=== PATIENT | female | born 1970 | race Caucasian/White ===

== ENCOUNTER 2021-12-08 19:11 | Inpatient (IN) ==
[2021-12-08 20:25] LABS: ABS Neutrophils 0.1 10^3/ul (1.5-7.7); Hematocrit 27 % (35-47); Hemoglobin 9.2 g/dL (12.0-16.0); Mean Corpuscular HGB Conc 34 g/dL (31-36); Mean Corpuscular Hemoglobin 34 pg (27-31); Mean Corpuscular Volume 98 fL (80-97); Mean Platelet Volume 8.6 fL (7.4-10.4); Platelet Count 19 10^3/uL (150-450); Red Blood Count 2.73 10^6 /uL (3.70-4.87); Red Cell Distribution Width 17 % (10-15); White Blood Count 0.6 10^3/uL (3.5-10.8)
[2021-12-08 20:33] LABS: Albumin 3.1 g/dL (3.2-5.2); Albumin/Globulin Ratio 1.5 (1-3); Calcium 7.9 mg/dL (8.6-10.3); Globulin 2.1 g/dL (2-4); Potassium 3.1 mmol/L (3.5-5.0); Total Bilirubin 0.4 mg/dL (0.2-1.0); Total Protein 5.2 g/dL (6.4-8.9); eGFR CKD-EPI 36.7 (>60)
[2021-12-08 20:58] LABS: ABS Lymphocytes 0.4 10^3/ul (1.0-4.8); ABS Monocytes 0.2 10^3/ul (0-0.8); Eosinophil % 0.5 %; Lymphocyte % 63.1 %
[2021-12-08 21:36] LABS: High Sensitivity Troponin 1 Hr 19 pg/mL (<15)
[2021-12-08] MEDS ORDERED: Iodixanol (CONTRAST) 320 MG/ML 100 ML SDV IV ONE (22:20)
[2021-12-08] MEDS ORDERED: Vancomycin 2,000 MG in NS 0.9% 250 ml 250 ML IVPB ONE (23:57)
[2021-12-09 00:39] LABS: C Reactive Protein 12.51 mg/L (<8.01)
[2021-12-09 00:46] LABS: Urine Appearance Slightly Cloudy; Urine Blood Negative (Negative); Urine Color Yellow; Urine Glucose Negative (Negative); Urine Ketones 1+ (15mg/dL) (Negative); Urine Nitrite Negative (Negative); Urine Protein 1+ (30 mg/dL) (Negative); Urine Specific Gravity 1.015 (1.005-1.030); Urine Urobilinogen 0.2 (Negative) (Negative); Urine pH 5.5 (5.0-9.0)
[2021-12-09 00:53] LABS: Urine Bacteria 1+ (Absent); Urine Red Blood Cell 3+(>10/hpf) (Absent); Urine Squamous Epithelial Cell Present (Absent); Urine White Blood Cell 1+(6-10/hpf) (Absent)
[2021-12-09] MEDS ORDERED: Vancomycin 2,000 MG in NS 0.9% 500 ml BAG 500 ML IVPB ONE (01:00)
[2021-12-09] MEDS ORDERED: Cefepime ADVAN 1 GM in NS 0.9% 50 ML 50 ML IVPB SCH (02:00)
[2021-12-09] MEDS ORDERED: Vancomycin per Pharmacy 1 EA NOTE FOLLOW UP SCH (02:00)
[2021-12-09 02:27] LABS: Magnesium 1.2 mg/dL (1.9-2.7)
[2021-12-09] MEDS ORDERED: NS 0.9% 1000 ml BAG 1,000 ML IV ONE (02:53)
[2021-12-09] MEDS ORDERED: Magnesium Sulfate IV 3 GM in NS 0.9% 100 ml BAG 100 ML IVPB ONE (02:53)
[2021-12-09] MEDS ORDERED: Magnesium Sulfate 2 GM IV (Premix) IVPB ONE (04:00)
[2021-12-09] MEDS ORDERED: Cefepime 1 GM IV - ED ONCE IV ONE (04:00)
[2021-12-09] MEDS: KCL 20 MEQ/100 ML IVPREMIX 20 MEQ/100 ML BAG IV SCH ×3 (04:05→08:42)
[2021-12-09] MEDS: Al Hydrox/Mg Hydrox/Simet LIQ 30 ML UDC PO PRN ×3 (04:22→20:31)
[2021-12-09] MEDS ORDERED: Magnesium Sulfate 1 GM IV 1 GM/100 ML BAG IV ONE (05:00)
[2021-12-09] MEDS: NS 0.9% 1000 ml BAG 1,000 ML IV SCH ×2 (08:42→20:06)
[2021-12-09] MEDS: Albuterol HFA INHALER 8 gm MDI INH SCH ×2 (08:48→12:01)
[2021-12-09] MEDS: Mometasone/Formoter 200/5 MDI INH SCH ×3 (08:49→19:40)
[2021-12-09 09:07] LABS: Calcium 7.5 mg/dL (8.6-10.3); Potassium 3.7 mmol/L (3.5-5.0)
[2021-12-09 09:13] LABS: eGFR CKD-EPI 54.1 (>60)
[2021-12-09 09:26] LABS: ABS Lymphocytes 0.3 10^3/ul (1.0-4.8); ABS Monocytes 0.2 10^3/ul (0-0.8); ABS Neutrophils 0.1 10^3/ul (1.5-7.7); Eosinophil % 0.7 %; Hematocrit 25 % (35-47); Hemoglobin 8.3 g/dL (12.0-16.0); Lymphocyte % 51.6 %; Mean Corpuscular HGB Conc 34 g/dL (31-36); Mean Corpuscular Hemoglobin 34 pg (27-31); Mean Corpuscular Volume 99 fL (80-97); Mean Platelet Volume 8.5 fL (7.4-10.4); Nucleated Red Blood Cells % 0.1; Platelet Count 20 10^3/uL (150-450); Red Blood Count 2.48 10^6 /uL (3.70-4.87); Red Cell Distribution Width 17 % (10-15); White Blood Count 0.6 10^3/uL (3.5-10.8)
[2021-12-09] MEDS ORDERED: Nicotine GUM 2MG FRUIT FLAVOR PO PRN (13:04)
[2021-12-09] MEDS: Cefepime 1 GM in Dextrose 1 GM/50 ML BAG IV SCH (16:16)
[2021-12-09] MEDS: Albuterol HFA INHALER 8 gm MDI INH PRN ×2 (16:46→19:41)
[2021-12-09] MEDS: NICOTINE GUM 2 MG PO PRN (16:52)
[2021-12-09] MEDS ORDERED: Calcium Carb (TUMS) 500 mg CHEW TAB PO PRN (21:17)
[2021-12-10] MEDS ORDERED: Ondansetron 4 mg VIAL 2 MG/ML 2 ml VIAL IV ONE (01:20)
[2021-12-10] MEDS: Albuterol HFA INHALER 8 gm MDI INH PRN ×5 (01:21→19:35)
[2021-12-10] MEDS: Cefepime 1 GM in Dextrose 1 GM/50 ML BAG IV SCH ×2 (04:03→15:23)
[2021-12-10] MEDS ORDERED: Vancomycin Random Level NOTE FOLLOW UP ONE (05:30)
[2021-12-10 06:02] LABS: Hematocrit 24 % (35-47); Hemoglobin 8.1 g/dL (12.0-16.0); Mean Corpuscular HGB Conc 34 g/dL (31-36); Mean Corpuscular Hemoglobin 34 pg (27-31); Mean Corpuscular Volume 99 fL (80-97); Mean Platelet Volume 9.2 fL (7.4-10.4); Platelet Count 33 10^3/uL (150-450); Red Cell Distribution Width 17 % (10-15); White Blood Count 0.7 10^3/uL (3.5-10.8)
[2021-12-10 06:40] LABS: Calcium 7.6 mg/dL (8.6-10.3); Potassium 4.1 mmol/L (3.5-5.0); Vancomycin Random 12.6 mcg/mL; eGFR CKD-EPI 76.4 (>60)
[2021-12-10] MEDS: Mometasone/Formoter 200/5 MDI INH SCH ×2 (07:18→19:29)
[2021-12-10 09:39] LABS: Anisocytosis 1+
[2021-12-10 09:40] LABS: ABS Lymphocytes 0.3 10^3/ul (1.0-4.8); ABS Monocytes 0.4 10^3/ul (0-0.8); ABS Neutrophils 0.1 10^3/ul (1.5-7.7); Eosinophil % 0.6 %; Lymphocyte % 41.7 %; Nucleated Red Blood Cells % 0.7
[2021-12-10] MEDS ORDERED: Vancomycin 1,250 MG in NS 0.9% 250 ml 250 ML IVPB SCH (13:30)
[2021-12-10] MEDS: Al Hydrox/Mg Hydrox/Simet LIQ 30 ML UDC PO PRN ×3 (14:34→19:33)
[2021-12-10] MEDS ORDERED: Ondansetron 4 mg VIAL 2 MG/ML 2 ml VIAL IV PRN (15:05)
[2021-12-11] MEDS: Albuterol HFA INHALER 8 gm MDI INH PRN ×3 (02:17→20:32)
[2021-12-11] MEDS: Cefepime 1 GM in Dextrose 1 GM/50 ML BAG IV SCH ×2 (04:42→17:47)
[2021-12-11 05:51] LABS: Hematocrit 23 % (35-47); Hemoglobin 7.4 g/dL (12.0-16.0); Mean Corpuscular HGB Conc 32 g/dL (31-36); Mean Corpuscular Hemoglobin 31 pg (27-31); Mean Corpuscular Volume 97 fL (80-97); Platelet Count 43 10^3/uL (150-450); Red Blood Count 2.36 10^6 /uL (3.70-4.87); Red Cell Distribution Width 17 % (10-15)
[2021-12-11 06:41] LABS: Anisocytosis 1+; Polychromasia 1+
[2021-12-11 06:42] LABS: ABS Lymphocytes 0.3 10^3/ul (1.0-4.8); ABS Monocytes 0.6 10^3/ul (0-0.8); ABS Neutrophils 0.1 10^3/ul (1.5-7.7); Eosinophil % 0.5 %; Nucleated Red Blood Cells % 3.4
[2021-12-11] MEDS: Mometasone/Formoter 200/5 MDI INH SCH ×2 (07:33→20:32)
[2021-12-11] MEDS: NICOTINE GUM 2 MG PO PRN (09:04)
[2021-12-11] MEDS: Fluticasone NASAL SPRAY 50MCG 16 gm SPRAY BTL INTRANASAL SCH (12:40)
[2021-12-11] MEDS: Al Hydrox/Mg Hydrox/Simet LIQ 30 ML UDC PO PRN ×2 (14:35→20:05)
[2021-12-11] MEDS ORDERED: Gadoteridol (CONTRAST) 279.3 MG/ML 10 ML IV ONE (17:02)
[2021-12-12] MEDS ORDERED: Vancomycin Trough Check NOTE FOLLOW UP ONE ×2 (00:30→11:30)
[2021-12-12] MEDS: Albuterol HFA INHALER 8 gm MDI INH PRN ×2 (02:00→07:09)
[2021-12-12] MEDS: Cefepime 1 GM in Dextrose 1 GM/50 ML BAG IV SCH (03:27)
[2021-12-12] MEDS: Albuterol 2.5mg/3 ml (0.083%) NEB.SOLN INH SCH ×3 (03:59→07:08)
[2021-12-12] MEDS: Mometasone/Formoter 200/5 MDI INH SCH (07:09)
[2021-12-12 07:22] LABS: Hematocrit 23 % (35-47); Mean Corpuscular HGB Conc 35 g/dL (31-36); Mean Corpuscular Hemoglobin 34 pg (27-31); Mean Corpuscular Volume 98 fL (80-97); Mean Platelet Volume 9.1 fL (7.4-10.4); Platelet Count 65 10^3/uL (150-450); Red Blood Count 2.35 10^6 /uL (3.70-4.87); Red Cell Distribution Width 17 % (10-15); White Blood Count 1.3 10^3/uL (3.5-10.8)
[2021-12-12 07:24] LABS: Potassium 3.9 mmol/L (3.5-5.0); eGFR CKD-EPI 79.6 (>60)
[2021-12-12 08:23] LABS: RBC Morphology Normal (Normal)
[2021-12-12 08:27] LABS: ABS Lymphocytes 0.3 10^3/ul (1.0-4.8); ABS Monocytes 0.7 10^3/ul (0-0.8); ABS Neutrophils 0.3 10^3/ul (1.5-7.7); Eosinophil % 0.2 %; Lymphocyte % 25.4 %; Nucleated Red Blood Cells % 1.1
[2021-12-12] MEDS: Fluticasone NASAL SPRAY 50MCG 16 gm SPRAY BTL INTRANASAL SCH (09:05)
[2021-12-12 11:52] VITALS: BP 102/65
== END 2021-12-12 15:20 | disposition home or self-care (01) | DRG 720 ==
LOC: ED 19:11 → EDHOLD 19:11 → SUATTDRO 12-09 01:36 → EDHOLD 12-09 08:08 → MED 12-09 08:24 → SUATTDRO 12-09 14:05
PROVIDERS: ADMIT Internal Medicine; ATTEND Internal Medicine

== ENCOUNTER 2021-12-15 18:49 | Observation (INO) ==
[2021-12-15 19:39] LABS: INR 1.03 (0.89-1.11)
[2021-12-15 19:45] LABS: Albumin 2.9 g/dL (3.2-5.2); Calcium 8.3 mg/dL (8.6-10.3); Potassium 3.8 mmol/L (3.5-5.0); Total Bilirubin 0.4 mg/dL (0.2-1.0)
[2021-12-15 19:51] LABS: Albumin/Globulin Ratio 1.3 (1-3); Globulin 2.3 g/dL (2-4); Total Protein 5.2 g/dL (6.4-8.9); eGFR CKD-EPI 81.9 (>60)
[2021-12-15 22:12] LABS: ABS Lymphocytes 0.5 10^3/ul (1.0-4.8); ABS Monocytes 1.5 10^3/ul (0-0.8); ABS Neutrophils 3.2 10^3/ul (1.5-7.7); Hematocrit 24 % (35-47); Hemoglobin 7.7 g/dL (12.0-16.0); Lymphocyte % 10.4 %; Mean Corpuscular HGB Conc 33 g/dL (31-36); Mean Corpuscular Hemoglobin 32 pg (27-31); Mean Corpuscular Volume 98 fL (80-97); Mean Platelet Volume 7.6 fL (7.4-10.4); Nucleated Red Blood Cells % 0.3; Platelet Count 144 10^3/uL (150-450); Red Blood Count 2.41 10^6 /uL (3.70-4.87); Red Cell Distribution Width 17 % (10-15); White Blood Count 5.2 10^3/uL (3.5-10.8)
[2021-12-15 22:36] LABS: High Sensitivity Troponin 1 Hr 131 pg/mL (<15)
[2021-12-15] MEDS ORDERED: Iodixanol (CONTRAST) 320 MG/ML 100 ML SDV IV ONE (23:22)
[2021-12-16] MEDS ORDERED: Heparin DRIP 25,000 UNITS BAG 25,000 UNITS/500 ML BAG IV SCH (02:00)
[2021-12-16] MEDS ORDERED: Heparin 5000 UNITS/ML 1 mL VIAL IV SCH (02:00)
[2021-12-16 03:12] LABS: eGFR CKD-EPI 84.2 (>60)
[2021-12-16] MEDS ORDERED: Nicotine Lozenge mini 4 MG LOZNG.MINI MT PRN (03:17)
[2021-12-16] MEDS ORDERED: Metoprolol Tartrate 5 mg VIAL 5 ml VIAL (1 mg/ml) IV ONE (04:07)
[2021-12-16] MEDS ORDERED: Albuterol HFA INHALER 8 gm MDI INH PRN (04:23)
[2021-12-16] MEDS ORDERED: Albuterol 2.5mg/3 ml (0.083%) NEB.SOLN INH PRN (04:23)
[2021-12-16 05:07] LABS: HDL Cholesterol 43.4 mg/dL
[2021-12-16 06:47] LABS: Calcium 7.7 mg/dL (8.6-10.3); Magnesium 1.1 mg/dL (1.9-2.7)
[2021-12-16 06:53] LABS: eGFR CKD-EPI 98.3 (>60)
[2021-12-16] MEDS ORDERED: Magnesium Sulf 4 GM/100 ML IV 4,000 MG/100 ML BAG IVPB ONE (07:46)
[2021-12-16] MEDS ORDERED: Potassium Chlor 20 meq TAB.ER PO ONE (07:47)
[2021-12-16] MEDS: Mometasone/Formoter 200/5 MDI INH SCH ×2 (08:16→19:53)
[2021-12-16] MEDS ORDERED: KCL 20 MEQ/100 ML IVPREMIX 20 MEQ/100 ML BAG IV ONE (08:34)
[2021-12-16] MEDS ORDERED: Regadenoson 0.4 MG/5 ML SYRINGE ONE (11:48)
[2021-12-16] MEDS ORDERED: Enoxaparin 40 MG/0.4 ML SYR SUBCUT SCH (21:00)
[2021-12-17] MEDS ORDERED: Nicotine GUM 2MG FRUIT FLAVOR PO PRN
[2021-12-17 06:38] LABS: ABS Lymphocytes 0.5 10^3/ul (1.0-4.8); ABS Monocytes 1.2 10^3/ul (0-0.8); Eosinophil % 0.1 %; Hematocrit 23 % (35-47); Hemoglobin 7.6 g/dL (12.0-16.0); Lymphocyte % 11.1 %; Mean Corpuscular HGB Conc 33 g/dL (31-36); Mean Corpuscular Hemoglobin 33 pg (27-31); Mean Corpuscular Volume 98 fL (80-97); Mean Platelet Volume 7.7 fL (7.4-10.4); Nucleated Red Blood Cells % 0.2; Platelet Count 154 10^3/uL (150-450); Red Blood Count 2.35 10^6 /uL (3.70-4.87); Red Cell Distribution Width 18 % (10-15); White Blood Count 4.7 10^3/uL (3.5-10.8)
[2021-12-17 07:15] LABS: Calcium 8.2 mg/dL (8.6-10.3); Magnesium 1.9 mg/dL (1.9-2.7); Potassium 3.6 mmol/L (3.5-5.0); eGFR CKD-EPI 89.4 (>60)
[2021-12-17] MEDS: Mometasone/Formoter 200/5 MDI INH SCH (09:20)
[2021-12-17 16:29] VITALS: BP 120/65
== END 2021-12-17 16:56 | disposition home or self-care (01) ==
LOC: ED 18:49 → INTOOBSV 12-16 03:09 → EDHOLD 12-16 03:09 → SUATTDRO 12-16 03:09 → MEDTELE 12-16 21:00
PROVIDERS: ADMIT Internal Medicine; ATTEND Internal Medicine

== ENCOUNTER 2021-12-21 17:55 | Inpatient (IN) ==
[2021-12-21] MEDS ORDERED: Lactated Ringers 1000 ml BAG 1,000 ML IV ONE (18:54)
[2021-12-21 20:45] LABS: ABS Basophils 0.1 10^3/ul (0-0.2); ABS Lymphocytes 0.5 10^3/ul (1.0-4.8); ABS Monocytes 0.2 10^3/ul (0-0.8); ABS Neutrophils 2.1 10^3/ul (1.5-7.7); Eosinophil % 0.4 %; Hematocrit 23 % (35-47); Hemoglobin 7.5 g/dL (12.0-16.0); Mean Corpuscular HGB Conc 33 g/dL (31-36); Mean Corpuscular Hemoglobin 32 pg (27-31); Mean Corpuscular Volume 98 fL (80-97); Mean Platelet Volume 7.4 fL (7.4-10.4); Nucleated Red Blood Cells % 0.1; Platelet Count 144 10^3/uL (150-450); Red Blood Count 2.34 10^6 /uL (3.70-4.87); Red Cell Distribution Width 18 % (10-15); White Blood Count 2.9 10^3/uL (3.5-10.8)
[2021-12-21 21:19] LABS: Rapid Strep Molecular Negative (Negative)
[2021-12-21 21:34] LABS: Albumin 3.1 g/dL (3.2-5.2); Albumin/Globulin Ratio 1.5 (1-3); Calcium 8.4 mg/dL (8.6-10.3); Globulin 2.1 g/dL (2-4); Potassium 3.7 mmol/L (3.5-5.0); Total Bilirubin 0.8 mg/dL (0.2-1.0); Total Protein 5.2 g/dL (6.4-8.9); eGFR CKD-EPI 58.8 (>60)
[2021-12-21] MEDS ORDERED: Lidocaine 2.5%/Prilocain 2.5% 5 GM TUBE TOPICAL PRN (23:58)
[2021-12-21] MEDS ORDERED: Albuterol HFA INHALER 8 gm MDI INH PRN (23:58)
[2021-12-22] MEDS: Lactated Ringers 1000 ml BAG 1,000 ML IV SCH ×3 (01:16→22:15)
[2021-12-22] MEDS ORDERED: Nicotine GUM 2MG FRUIT FLAVOR PO PRN (02:20)
[2021-12-22] MEDS ORDERED: Nicotine Lozenge mini 2 MG LOZNG.MINI MT PRN (02:20)
[2021-12-22 02:21] LABS: Osmolality Serum 289 mOsm/kg (275-295)
[2021-12-22 02:46] LABS: High Sensitivity Troponin 1 Hr 41 pg/mL (<15)
[2021-12-22 04:58] LABS: Urine Appearance Clear; Urine Bilirubin Negative (Negative); Urine Color Yellow; Urine Glucose Negative (Negative); Urine Ketones Trace (Negative)
[2021-12-22 04:59] LABS: Urine Blood Negative (Negative); Urine Nitrite Negative (Negative); Urine Protein Negative (Negative); Urine Urobilinogen 0.2 (Negative) (Negative); Urine pH 5.5 (5.0-9.0)
[2021-12-22 05:00] LABS: Urine Osmo 489 mOsm/kg (150-1150)
[2021-12-22 05:03] LABS: Urine Specific Gravity 1.017 (1.002-1.030)
[2021-12-22 05:11] LABS: Urine Bacteria 1+ (Absent); Urine Red Blood Cell 2+(6-10/hpf) (Absent); Urine Squamous Epithelial Cell Present (Absent); Urine White Blood Cell 1+(6-10/hpf) (Absent)
[2021-12-22 08:37] LABS: ABS Lymphocytes 0.4 10^3/ul (1.0-4.8); ABS Monocytes 0.2 10^3/ul (0-0.8); ABS Neutrophils 1.9 10^3/ul (1.5-7.7); Eosinophil % 0.5 %; Hematocrit 26 % (35-47); Hemoglobin 8.6 g/dL (12.0-16.0); Lymphocyte % 15.3 %; Mean Corpuscular HGB Conc 34 g/dL (31-36); Mean Corpuscular Hemoglobin 32 pg (27-31); Mean Corpuscular Volume 96 fL (80-97); Mean Platelet Volume 7.9 fL (7.4-10.4); Nucleated Red Blood Cells % 0.1; Platelet Count 118 10^3/uL (150-450); Red Blood Count 2.69 10^6 /uL (3.70-4.87); Red Cell Distribution Width 17 % (10-15); White Blood Count 2.5 10^3/uL (3.5-10.8)
[2021-12-22 09:37] LABS: Potassium 3.8 mmol/L (3.5-5.0); eGFR CKD-EPI 67.4 (>60)
[2021-12-22] MEDS: Mometasone/Formoter 200/5 MDI INH SCH ×2 (10:17→21:28)
[2021-12-22] MEDS: Fluticasone NASAL SPRAY 50MCG 16 gm SPRAY BTL INTRANASAL SCH (10:17)
[2021-12-23] MEDS: Lactated Ringers 1000 ml BAG 1,000 ML IV SCH (05:33)
[2021-12-23] MEDS: Polyethylene Glycol 3350 17 GM PACKET PO PRN (05:39)
[2021-12-23] MEDS: Mometasone/Formoter 200/5 MDI INH SCH ×2 (08:02→18:57)
[2021-12-23] MEDS: Fluticasone NASAL SPRAY 50MCG 16 gm SPRAY BTL INTRANASAL SCH (09:39)
[2021-12-23 09:45] LABS: Hematocrit 26 % (35-47); Hemoglobin 8.8 g/dL (12.0-16.0); Mean Corpuscular HGB Conc 34 g/dL (31-36); Mean Corpuscular Hemoglobin 32 pg (27-31); Mean Corpuscular Volume 96 fL (80-97); Red Blood Count 2.73 10^6 /uL (3.70-4.87); Red Cell Distribution Width 17 % (10-15); White Blood Count 2.7 10^3/uL (3.5-10.8)
[2021-12-23 10:10] LABS: ABS Lymphocytes 0.3 10^3/ul (1.0-4.8); ABS Monocytes 0.1 10^3/ul (0-0.8); ABS Neutrophils 2.3 10^3/ul (1.5-7.7); Eosinophil % 0.7 %; Lymphocyte % 10.6 %; Mean Platelet Volume 7.3 fL (7.4-10.4); Platelet Count 76 10^3/uL (150-450)
[2021-12-23 10:21] LABS: Calcium 7.9 mg/dL (8.6-10.3); Potassium 3.7 mmol/L (3.5-5.0)
[2021-12-23 12:05] LABS: Ferritin 496.3 ng/mL (11-307)
[2021-12-24] MEDS: Polyethylene Glycol 3350 17 GM PACKET PO PRN (05:21)
[2021-12-24 05:38] LABS: ABS Lymphocytes 0.3 10^3/ul (1.0-4.8); ABS Monocytes 0.1 10^3/ul (0-0.8); ABS Neutrophils 1.6 10^3/ul (1.5-7.7); Eosinophil % 0.9 %; Hematocrit 24 % (35-47); Hemoglobin 8.2 g/dL (12.0-16.0); Lymphocyte % 15.5 %; Mean Corpuscular HGB Conc 34 g/dL (31-36); Mean Corpuscular Hemoglobin 33 pg (27-31); Mean Corpuscular Volume 97 fL (80-97); Mean Platelet Volume 7.9 fL (7.4-10.4); Nucleated Red Blood Cells % 0.2; Platelet Count 55 10^3/uL (150-450); Red Blood Count 2.51 10^6 /uL (3.70-4.87); Red Cell Distribution Width 17 % (10-15); White Blood Count 2.1 10^3/uL (3.5-10.8)
[2021-12-24 06:16] LABS: Calcium 7.8 mg/dL (8.6-10.3); Potassium 3.9 mmol/L (3.5-5.0); eGFR CKD-EPI 81.9 (>60)
[2021-12-24] MEDS: Mometasone/Formoter 200/5 MDI INH SCH ×2 (08:20→19:24)
[2021-12-24] MEDS: Fluticasone NASAL SPRAY 50MCG 16 gm SPRAY BTL INTRANASAL SCH (08:29)
[2021-12-25] MEDS: Mometasone/Formoter 200/5 MDI INH SCH ×3 (07:52→18:59)
[2021-12-25] MEDS: Fluticasone NASAL SPRAY 50MCG 16 gm SPRAY BTL INTRANASAL SCH (09:15)
[2021-12-25 10:21] LABS: Hematocrit 27 % (35-47); Hemoglobin 8.9 g/dL (12.0-16.0); Mean Corpuscular HGB Conc 33 g/dL (31-36); Mean Corpuscular Hemoglobin 32 pg (27-31); Mean Corpuscular Volume 97 fL (80-97); Mean Platelet Volume 7.3 fL (7.4-10.4); Platelet Count 37 10^3/uL (150-450); Red Blood Count 2.81 10^6 /uL (3.70-4.87); Red Cell Distribution Width 17 % (10-15)
[2021-12-25 11:02] LABS: Potassium 3.8 mmol/L (3.5-5.0); eGFR CKD-EPI 86.7 (>60)
[2021-12-25] MEDS ORDERED: Sodium Phosphate ADULT ENEMA 133 ML BTL PR ONE (11:47)
[2021-12-26] MEDS: Mometasone/Formoter 200/5 MDI INH SCH (08:05)
[2021-12-26] MEDS: Polyethylene Glycol 3350 17 GM PACKET PO PRN (10:12)
[2021-12-26] MEDS: Fluticasone NASAL SPRAY 50MCG 16 gm SPRAY BTL INTRANASAL SCH (10:16)
[2021-12-26 11:27] VITALS: BP 134/78
== END 2021-12-26 12:10 | DRG 111 ==
LOC: EDHOLD 17:55 → ED 17:55 → SUATTDRO 12-22 01:52 → MED 12-22 17:03
PROVIDERS: ADMIT Internal Medicine; ATTEND Internal Medicine

== ENCOUNTER 2022-04-22 13:45 | Inpatient (IN) ==
[2022-04-22] MEDS ORDERED: Albuterol/Ipratropium NEB.SOL (2.5/0.5 MG) 3 ML NEB.SOLN INH ONE (13:58)
[2022-04-22] MEDS ORDERED: methylPREDNISolone SOD SUCC 125 mg 2 ML VIAL IV ONE (13:58)
[2022-04-22] MEDS ORDERED: Cefepime 2 GM in Dextrose 2 GM/50 ML BAG IV ONE (14:16)
[2022-04-22] MEDS ORDERED: Azithromycin 500 mg/250 ml NS 500 MG/250 ML BAG IVPB ONE (14:16)
[2022-04-22] MEDS ORDERED: Lactated Ringers SEPSIS* BAG 1,430 ML IV ONE (14:16)
[2022-04-22 15:28] LABS: Albumin 2.8 g/dL (3.2-5.2); Albumin/Globulin Ratio 1.3 (1-3); C Reactive Protein 207.38 mg/L (<8.01); Calcium 7.8 mg/dL (8.6-10.3); Globulin 2.1 g/dL (2-4); Potassium 3.2 mmol/L (3.5-5.0); Total Bilirubin 0.6 mg/dL (0.2-1.0); Total Protein 4.9 g/dL (6.4-8.9); eGFR CKD-EPI 107.3 (>60)
[2022-04-22 16:07] LABS: Hematocrit 30 % (35-47); Hemoglobin 9.9 g/dL (12.0-16.0); Mean Corpuscular HGB Conc 33 g/dL (31-36); Mean Corpuscular Hemoglobin 35 pg (27-31); Mean Corpuscular Volume 105 fL (80-97); Red Blood Count 2.87 10^6 /uL (3.70-4.87); Red Cell Distribution Width 19 % (10-15); White Blood Count 4.5 10^3/uL (3.5-10.8)
[2022-04-22 16:11] LABS: ABS Lymphocytes 0.3 10^3/ul (1.0-4.8); ABS Monocytes 0.4 10^3/ul (0-0.8); ABS Neutrophils 3.8 10^3/ul (1.5-7.7); Eosinophil % 0.3 %; Lymphocyte % 7.5 %; Mean Platelet Volume 7.7 fL (7.4-10.4); Nucleated Red Blood Cells % 0.8; Platelet Count 60 10^3/uL (150-450)
[2022-04-22 16:30] LABS: Magnesium 1.6 mg/dL (1.9-2.7)
[2022-04-22] MEDS ORDERED: Magnesium Sulf 4 GM/100 ML IV 4,000 MG/100 ML BAG IVPB ONE (16:44)
[2022-04-22] MEDS ORDERED: Potassium Chlor 20 meq TAB.ER PO ONE ×2 (16:44→17:50)
[2022-04-22] MEDS ORDERED: Enoxaparin 40 MG/0.4 ML SYR SUBCUT SCH (17:00)
[2022-04-22] MEDS ORDERED: Bismuth Subsalicylate (BTL) 525 MG/30 ML (BULK BTL) PO PRN (17:38)
[2022-04-22] MEDS ORDERED: Albuterol HFA INHALER 8 gm MDI INH PRN (17:38)
[2022-04-22] MEDS: Nicotine PATCH 21 MG/24 HR PATCH TRANSDERM SCH (17:42)
[2022-04-22] MEDS ORDERED: Ondansetron ODT 4 mg TAB 4 MG TAB PO PRN (18:12)
[2022-04-22] MEDS: Mometasone/Formoter 200/5 MDI INH SCH (20:36)
[2022-04-22] MEDS: Cefepime 2 GM in Dextrose 2 GM/50 ML BAG IV SCH (23:43)
[2022-04-23] MEDS ORDERED: Enoxaparin 60 MG/0.6 ML SYR SUBCUT ONE (01:00)
[2022-04-23 06:02] LABS: ABS Lymphocytes 0.3 10^3/ul (1.0-4.8); ABS Monocytes 0.3 10^3/ul (0-0.8); ABS Neutrophils 4.1 10^3/ul (1.5-7.7); Hematocrit 28 % (35-47); Hemoglobin 9.2 g/dL (12.0-16.0); Lymphocyte % 7.2 %; Mean Corpuscular HGB Conc 33 g/dL (31-36); Mean Corpuscular Hemoglobin 35 pg (27-31); Mean Corpuscular Volume 106 fL (80-97); Mean Platelet Volume 7.9 fL (7.4-10.4); Nucleated Red Blood Cells % 0.5; Platelet Count 60 10^3/uL (150-450); Red Blood Count 2.66 10^6 /uL (3.70-4.87); Red Cell Distribution Width 19 % (10-15); White Blood Count 4.8 10^3/uL (3.5-10.8)
[2022-04-23 06:42] LABS: Albumin 2.7 g/dL (3.2-5.2); Albumin/Globulin Ratio 1.3 (1-3); Calcium 7.9 mg/dL (8.6-10.3); Globulin 2.1 g/dL (2-4); Magnesium 2.8 mg/dL (1.9-2.7); Potassium 4.3 mmol/L (3.5-5.0); Total Bilirubin 0.4 mg/dL (0.2-1.0); Total Protein 4.8 g/dL (6.4-8.9); eGFR CKD-EPI 105.6 (>60)
[2022-04-23] MEDS: Enoxaparin 100 MG/ML SYR SUBCUT SCH ×2 (08:56→21:14)
[2022-04-23] MEDS: Cefepime 2 GM in Dextrose 2 GM/50 ML BAG IV SCH ×3 (08:57→22:53)
[2022-04-23] MEDS: Nicotine PATCH 21 MG/24 HR PATCH TRANSDERM SCH (08:57)
[2022-04-23] MEDS: Mometasone/Formoter 200/5 MDI INH SCH ×2 (08:58→19:21)
[2022-04-23] MEDS: Fluticasone NASAL SPRAY 50MCG 16 gm SPRAY BTL INTRANASAL SCH ×2 (09:03→14:50)
[2022-04-23] MEDS: Benzocaine/Menthol LOZ PO PRN ×2 (14:49→17:14)
[2022-04-23] MEDS: Albuterol 2.5mg/3 ml (0.083%) NEB.SOLN INH PRN ×2 (15:27→23:46)
[2022-04-24 05:25] LABS: ABS Lymphocytes 0.4 10^3/ul (1.0-4.8); ABS Monocytes 0.7 10^3/ul (0-0.8); ABS Neutrophils 4.5 10^3/ul (1.5-7.7); Hematocrit 26 % (35-47); Hemoglobin 8.5 g/dL (12.0-16.0); Lymphocyte % 7.1 %; Mean Corpuscular HGB Conc 33 g/dL (31-36); Mean Corpuscular Hemoglobin 34 pg (27-31); Mean Corpuscular Volume 106 fL (80-97); Mean Platelet Volume 7.6 fL (7.4-10.4); Nucleated Red Blood Cells % 0.5; Platelet Count 59 10^3/uL (150-450); Red Blood Count 2.46 10^6 /uL (3.70-4.87); Red Cell Distribution Width 19 % (10-15); White Blood Count 5.6 10^3/uL (3.5-10.8)
[2022-04-24 06:10] LABS: Calcium 8.1 mg/dL (8.6-10.3); Magnesium 2.2 mg/dL (1.9-2.7); Potassium 4.4 mmol/L (3.5-5.0); eGFR CKD-EPI 106.4 (>60)
[2022-04-24] MEDS: Enoxaparin 100 MG/ML SYR SUBCUT SCH ×2 (08:04→20:19)
[2022-04-24] MEDS: Cefepime 2 GM in Dextrose 2 GM/50 ML BAG IV SCH ×3 (08:04→23:12)
[2022-04-24] MEDS: Nicotine PATCH 21 MG/24 HR PATCH TRANSDERM SCH (08:04)
[2022-04-24] MEDS: Fluticasone NASAL SPRAY 50MCG 16 gm SPRAY BTL INTRANASAL SCH (08:05)
[2022-04-24] MEDS: Mometasone/Formoter 200/5 MDI INH SCH ×2 (09:14→19:57)
[2022-04-24] MEDS: SPIRIVA Respimat (tiotropium) 2.5 mcg/inh Inhaler INH SCH (10:42)
[2022-04-24] MEDS: Nicotine Lozenge mini 2 MG LOZNG.MINI MT PRN ×2 (15:46→20:19)
[2022-04-24] MEDS: Albuterol 2.5mg/3 ml (0.083%) NEB.SOLN INH PRN ×2 (17:07→20:01)
[2022-04-25 04:57] LABS: ABS Lymphocytes 0.5 10^3/ul (1.0-4.8); ABS Monocytes 0.5 10^3/ul (0-0.8); Hematocrit 25 % (35-47); Hemoglobin 8.2 g/dL (12.0-16.0); Lymphocyte % 9.9 %; Mean Corpuscular HGB Conc 33 g/dL (31-36); Mean Corpuscular Hemoglobin 34 pg (27-31); Mean Corpuscular Volume 105 fL (80-97); Mean Platelet Volume 7.8 fL (7.4-10.4); Nucleated Red Blood Cells % 0.8; Platelet Count 64 10^3/uL (150-450); Red Cell Distribution Width 18 % (10-15); White Blood Count 4.9 10^3/uL (3.5-10.8)
[2022-04-25 06:38] LABS: Potassium 4.4 mmol/L (3.5-5.0)
[2022-04-25 06:39] LABS: Calcium 8.3 mg/dL (8.6-10.3); eGFR CKD-EPI 108.6 (>60)
[2022-04-25] MEDS: SPIRIVA Respimat (tiotropium) 2.5 mcg/inh Inhaler INH SCH (07:28)
[2022-04-25] MEDS: Mometasone/Formoter 200/5 MDI INH SCH (07:28)
[2022-04-25] MEDS: Benzocaine/Menthol LOZ PO PRN (07:47)
[2022-04-25] MEDS: Nicotine PATCH 21 MG/24 HR PATCH TRANSDERM SCH (07:48)
[2022-04-25] MEDS: Enoxaparin 100 MG/ML SYR SUBCUT SCH (07:50)
[2022-04-25] MEDS: Cefepime 2 GM in Dextrose 2 GM/50 ML BAG IV SCH (07:54)
[2022-04-25] MEDS: Fluticasone NASAL SPRAY 50MCG 16 gm SPRAY BTL INTRANASAL SCH (07:58)
[2022-04-25] MEDS ORDERED: Magnesium Hydroxide LIQ 30 ML UDC PO PRN (08:59)
[2022-04-25] MEDS ORDERED: Senna TAB 8.6 mg TAB PO PRN (08:59)
[2022-04-25 11:06] VITALS: BP 144/93
[2022-04-25] MEDS ORDERED: Polyethylene Glycol 3350 17 GM PACKET PO SCH (21:00)
== END 2022-04-25 11:01 | disposition swing bed (61) | DRG 133 ==
LOC: EDHOLD 13:45 → ED 13:45 → SUATTDRO 16:45 → MED 04-23 13:27
PROVIDERS: ADMIT Internal Medicine; ATTEND Internal Medicine

== ENCOUNTER 2022-04-25 11:02 | Inpatient (IN) ==
[2022-04-25] MEDS ORDERED: Magnesium Hydroxide LIQ 30 ML UDC PO PRN (11:24)
[2022-04-25] MEDS ORDERED: Albuterol HFA INHALER 8 gm MDI INH PRN (12:22)
[2022-04-25] MEDS ORDERED: Ondansetron ODT 4 mg TAB 4 MG TAB PO PRN (12:32)
[2022-04-25] MEDS ORDERED: Polyethylene Glycol 3350 17 GM PACKET PO PRN (12:35)
[2022-04-25] MEDS: Enoxaparin 100 MG/ML SYR SUBCUT SCH (20:24)
[2022-04-25] MEDS: Mometasone/Formoter 200/5 MDI INH SCH (21:16)
[2022-04-26] MEDS: Nicotine GUM 2MG FRUIT FLAVOR PO PRN ×2 (06:15→17:30)
[2022-04-26] MEDS: Mometasone/Formoter 200/5 MDI INH SCH ×2 (07:08→19:17)
[2022-04-26] MEDS: SPIRIVA Respimat (tiotropium) 2.5 mcg/inh Inhaler INH SCH (07:08)
[2022-04-26] MEDS: Nicotine PATCH 21 MG/24 HR PATCH TRANSDERM SCH (07:39)
[2022-04-26] MEDS: Enoxaparin 100 MG/ML SYR SUBCUT SCH ×2 (07:40→21:14)
[2022-04-26] MEDS: Fluticasone NASAL SPRAY 50MCG 16 gm SPRAY BTL INTRANASAL SCH (07:41)
[2022-04-27] MEDS: Mometasone/Formoter 200/5 MDI INH SCH ×2 (06:56→19:25)
[2022-04-27] MEDS: SPIRIVA Respimat (tiotropium) 2.5 mcg/inh Inhaler INH SCH ×2 (06:58→13:38)
[2022-04-27] MEDS: Nicotine PATCH 21 MG/24 HR PATCH TRANSDERM SCH (08:29)
[2022-04-27] MEDS: Fluticasone NASAL SPRAY 50MCG 16 gm SPRAY BTL INTRANASAL SCH (08:30)
[2022-04-27] MEDS: Enoxaparin 100 MG/ML SYR SUBCUT SCH ×2 (08:30→20:36)
[2022-04-27] MEDS: Nicotine GUM 2MG FRUIT FLAVOR PO PRN (08:31)
[2022-04-28] MEDS: Mometasone/Formoter 200/5 MDI INH SCH ×2 (07:35→19:44)
[2022-04-28] MEDS: SPIRIVA Respimat (tiotropium) 2.5 mcg/inh Inhaler INH SCH (07:35)
[2022-04-28] MEDS: Nicotine PATCH 21 MG/24 HR PATCH TRANSDERM SCH (09:32)
[2022-04-28] MEDS: Enoxaparin 100 MG/ML SYR SUBCUT SCH ×2 (09:32→20:45)
[2022-04-28] MEDS: Fluticasone NASAL SPRAY 50MCG 16 gm SPRAY BTL INTRANASAL SCH (09:33)
[2022-04-28] MEDS: Benzocaine/Menthol LOZ PO PRN (09:33)
[2022-04-28] MEDS: Calcium Carb (TUMS) 500 mg CHEW TAB PO PRN (20:45)
[2022-04-28] MEDS: Nicotine GUM 2MG FRUIT FLAVOR PO PRN (20:45)
[2022-04-29] MEDS: SPIRIVA Respimat (tiotropium) 2.5 mcg/inh Inhaler INH SCH (08:13)
[2022-04-29] MEDS: Mometasone/Formoter 200/5 MDI INH SCH ×2 (08:13→19:31)
[2022-04-29] MEDS: Enoxaparin 100 MG/ML SYR SUBCUT SCH ×2 (08:29→20:29)
[2022-04-29] MEDS: Nicotine PATCH 21 MG/24 HR PATCH TRANSDERM SCH (08:29)
[2022-04-29] MEDS: Fluticasone NASAL SPRAY 50MCG 16 gm SPRAY BTL INTRANASAL SCH (08:29)
[2022-04-29] MEDS: Nicotine GUM 2MG FRUIT FLAVOR PO PRN ×2 (08:40→14:18)
[2022-04-29] MEDS: Benzocaine/Menthol LOZ PO PRN (20:28)
[2022-04-29] MEDS: Calcium Carb (TUMS) 500 mg CHEW TAB PO PRN (20:28)
[2022-04-30] MEDS: SPIRIVA Respimat (tiotropium) 2.5 mcg/inh Inhaler INH SCH (07:22)
[2022-04-30] MEDS: Mometasone/Formoter 200/5 MDI INH SCH ×2 (07:23→20:19)
[2022-04-30] MEDS: Enoxaparin 100 MG/ML SYR SUBCUT SCH ×2 (09:12→20:11)
[2022-04-30] MEDS: Fluticasone NASAL SPRAY 50MCG 16 gm SPRAY BTL INTRANASAL SCH (09:13)
[2022-04-30] MEDS: Nicotine GUM 2MG FRUIT FLAVOR PO PRN ×3 (09:13→20:18)
[2022-04-30] MEDS: Nicotine PATCH 21 MG/24 HR PATCH TRANSDERM SCH (09:13)
[2022-04-30] MEDS: Calcium Carb (TUMS) 500 mg CHEW TAB PO PRN ×2 (13:53→20:10)
[2022-04-30] MEDS: Benzocaine/Menthol LOZ PO PRN (21:12)
[2022-05-01] MEDS: Mometasone/Formoter 200/5 MDI INH SCH ×2 (08:07→20:31)
[2022-05-01] MEDS: SPIRIVA Respimat (tiotropium) 2.5 mcg/inh Inhaler INH SCH (08:08)
[2022-05-01] MEDS: Enoxaparin 100 MG/ML SYR SUBCUT SCH ×2 (08:36→20:50)
[2022-05-01] MEDS: Fluticasone NASAL SPRAY 50MCG 16 gm SPRAY BTL INTRANASAL SCH (08:37)
[2022-05-01] MEDS: Nicotine PATCH 21 MG/24 HR PATCH TRANSDERM SCH (08:37)
[2022-05-01] MEDS: Nicotine GUM 2MG FRUIT FLAVOR PO PRN (10:33)
[2022-05-01] MEDS: Calcium Carb (TUMS) 500 mg CHEW TAB PO PRN (22:35)
[2022-05-02] MEDS: Nicotine GUM 2MG FRUIT FLAVOR PO PRN ×2 (05:57→16:08)
[2022-05-02] MEDS: Mometasone/Formoter 200/5 MDI INH SCH ×2 (08:18→20:35)
[2022-05-02] MEDS: SPIRIVA Respimat (tiotropium) 2.5 mcg/inh Inhaler INH SCH (08:18)
[2022-05-02 08:51] LABS: Hematocrit 31 % (35-47); Hemoglobin 9.9 g/dL (12.0-16.0); Mean Corpuscular HGB Conc 32 g/dL (31-36); Mean Corpuscular Hemoglobin 35 pg (27-31); Mean Corpuscular Volume 108 fL (80-97); Mean Platelet Volume 9.2 fL (7.4-10.4); Platelet Count 136 10^3/uL (150-450); Red Blood Count 2.86 10^6 /uL (3.70-4.87); Red Cell Distribution Width 19 % (10-15); White Blood Count 7.5 10^3/uL (3.5-10.8)
[2022-05-02] MEDS: Nicotine PATCH 21 MG/24 HR PATCH TRANSDERM SCH (09:18)
[2022-05-02] MEDS: Enoxaparin 100 MG/ML SYR SUBCUT SCH ×2 (09:19→20:19)
[2022-05-02] MEDS: Fluticasone NASAL SPRAY 50MCG 16 gm SPRAY BTL INTRANASAL SCH (09:27)
[2022-05-02 09:30] LABS: Albumin 3.2 g/dL (3.2-5.2); Albumin/Globulin Ratio 1.7 (1-3); Calcium 8.6 mg/dL (8.6-10.3); Globulin 1.9 g/dL (2-4); Potassium 4.3 mmol/L (3.5-5.0); Total Bilirubin 0.3 mg/dL (0.2-1.0); Total Protein 5.1 g/dL (6.4-8.9); eGFR CKD-EPI 108.6 (>60)
[2022-05-02 09:59] LABS: ABS Lymphocytes 0.6 10^3/ul (1.0-4.8); ABS Monocytes 0.8 10^3/ul (0-0.8); ABS Neutrophils 6.1 10^3/ul (1.5-7.7); ABS Nucleated RBC 0.1 10^3/ul; Anisocytosis 1+; Lymphocyte % 7.8 %; Macrocytosis 1+; Nucleated Red Blood Cells % 1.8
[2022-05-02 10:00] LABS: Polychromasia 1+
[2022-05-02] MEDS: Calcium Carb (TUMS) 500 mg CHEW TAB PO PRN ×2 (15:21→20:18)
[2022-05-03] MEDS: Enoxaparin 100 MG/ML SYR SUBCUT SCH ×2 (07:43→20:08)
[2022-05-03] MEDS: Nicotine GUM 2MG FRUIT FLAVOR PO PRN ×2 (07:43→20:07)
[2022-05-03] MEDS: Nicotine PATCH 21 MG/24 HR PATCH TRANSDERM SCH (07:43)
[2022-05-03] MEDS: Fluticasone NASAL SPRAY 50MCG 16 gm SPRAY BTL INTRANASAL SCH (07:44)
[2022-05-03] MEDS: Mometasone/Formoter 200/5 MDI INH SCH ×2 (08:09→18:42)
[2022-05-03] MEDS: SPIRIVA Respimat (tiotropium) 2.5 mcg/inh Inhaler INH SCH (08:10)
[2022-05-03] MEDS: Calcium Carb (TUMS) 500 mg CHEW TAB PO PRN ×2 (16:29→20:44)
[2022-05-03] MEDS ORDERED: Bismuth Subsalicylate (BTL) 525 MG/30 ML (BULK BTL) PO PRN (22:25)
[2022-05-04] MEDS: SPIRIVA Respimat (tiotropium) 2.5 mcg/inh Inhaler INH SCH (07:50)
[2022-05-04] MEDS: Mometasone/Formoter 200/5 MDI INH SCH ×2 (07:50→20:10)
[2022-05-04] MEDS: Nicotine PATCH 21 MG/24 HR PATCH TRANSDERM SCH (08:17)
[2022-05-04] MEDS: Enoxaparin 100 MG/ML SYR SUBCUT SCH ×2 (08:19→20:58)
[2022-05-04] MEDS: Fluticasone NASAL SPRAY 50MCG 16 gm SPRAY BTL INTRANASAL SCH (08:20)
[2022-05-04] MEDS: Nicotine GUM 2MG FRUIT FLAVOR PO PRN ×3 (08:41→17:51)
[2022-05-04] MEDS ORDERED: NF:Omeprazole 10 mg CAP (NF) PO SCH (09:00)
[2022-05-05] MEDS: Mometasone/Formoter 200/5 MDI INH SCH ×2 (07:19→19:24)
[2022-05-05] MEDS: SPIRIVA Respimat (tiotropium) 2.5 mcg/inh Inhaler INH SCH (07:19)
[2022-05-05] MEDS: Enoxaparin 100 MG/ML SYR SUBCUT SCH ×2 (07:45→20:58)
[2022-05-05] MEDS: Fluticasone NASAL SPRAY 50MCG 16 gm SPRAY BTL INTRANASAL SCH (07:45)
[2022-05-05] MEDS: Nicotine GUM 2MG FRUIT FLAVOR PO PRN ×3 (07:45→21:05)
[2022-05-05] MEDS: Nicotine PATCH 21 MG/24 HR PATCH TRANSDERM SCH (07:45)
[2022-05-05] MEDS: Calcium Carb (TUMS) 500 mg CHEW TAB PO PRN (13:12)
[2022-05-06] MEDS: Mometasone/Formoter 200/5 MDI INH SCH ×2 (09:05→19:17)
[2022-05-06] MEDS: SPIRIVA Respimat (tiotropium) 2.5 mcg/inh Inhaler INH SCH (09:05)
[2022-05-06] MEDS: Nicotine PATCH 21 MG/24 HR PATCH TRANSDERM SCH (09:36)
[2022-05-06] MEDS: Enoxaparin 100 MG/ML SYR SUBCUT SCH ×2 (09:37→20:40)
[2022-05-06] MEDS: Fluticasone NASAL SPRAY 50MCG 16 gm SPRAY BTL INTRANASAL SCH (09:37)
[2022-05-06] MEDS: Nicotine GUM 2MG FRUIT FLAVOR PO PRN ×3 (14:38→19:37)
[2022-05-07] MEDS: Nicotine GUM 2MG FRUIT FLAVOR PO PRN ×3 (03:48→20:36)
[2022-05-07] MEDS: Calcium Carb (TUMS) 500 mg CHEW TAB PO PRN (05:13)
[2022-05-07] MEDS: Mometasone/Formoter 200/5 MDI INH SCH ×2 (07:28→19:30)
[2022-05-07] MEDS: SPIRIVA Respimat (tiotropium) 2.5 mcg/inh Inhaler INH SCH (07:28)
[2022-05-07] MEDS: Nicotine PATCH 21 MG/24 HR PATCH TRANSDERM SCH (08:27)
[2022-05-07] MEDS: Enoxaparin 100 MG/ML SYR SUBCUT SCH ×2 (08:28→20:35)
[2022-05-07] MEDS: Fluticasone NASAL SPRAY 50MCG 16 gm SPRAY BTL INTRANASAL SCH (08:28)
[2022-05-08] MEDS: SPIRIVA Respimat (tiotropium) 2.5 mcg/inh Inhaler INH SCH (07:25)
[2022-05-08] MEDS: Mometasone/Formoter 200/5 MDI INH SCH (07:26)
[2022-05-08] MEDS: Nicotine PATCH 21 MG/24 HR PATCH TRANSDERM SCH (08:36)
[2022-05-08] MEDS: Enoxaparin 100 MG/ML SYR SUBCUT SCH (08:37)
[2022-05-08] MEDS: Fluticasone NASAL SPRAY 50MCG 16 gm SPRAY BTL INTRANASAL SCH (08:38)
[2022-05-08] MEDS: Nicotine GUM 2MG FRUIT FLAVOR PO PRN (09:34)
[2022-05-08] MEDS: Benzocaine/Menthol LOZ PO PRN (12:29)
[2022-05-08 12:36] LABS: Hematocrit 29 % (35-47); Hemoglobin 9.2 g/dL (12.0-16.0); Mean Corpuscular HGB Conc 32 g/dL (31-36); Mean Corpuscular Hemoglobin 35 pg (27-31); Mean Corpuscular Volume 109 fL (80-97); Mean Platelet Volume 8.3 fL (7.4-10.4); Platelet Count 140 10^3/uL (150-450); Red Blood Count 2.61 10^6 /uL (3.70-4.87); Red Cell Distribution Width 21 % (10-15); White Blood Count 7.7 10^3/uL (3.5-10.8)
[2022-05-08 13:18] LABS: Macrocytosis 1+; Polychromasia 1+
[2022-05-08 13:19] LABS: Anisocytosis 1+
[2022-05-08 13:21] LABS: ABS Basophils 0.1 10^3/ul (0-0.2); ABS Lymphocytes 0.6 10^3/ul (1.0-4.8); ABS Monocytes 0.5 10^3/ul (0-0.8); ABS Neutrophils 6.5 10^3/ul (1.5-7.7); ABS Nucleated RBC 0.3 10^3/ul; Eosinophil % 0.1 %; Lymphocyte % 7.8 %; Nucleated Red Blood Cells % 3.4
[2022-05-08 14:39] LABS: Rapid COVID-19 Molecular Undetected (Undetected)
[2022-05-08 16:09] VITALS: BP 90/60
== END 2022-05-08 16:22 | disposition short-term general hospital (02) | DRG 139 ==
LOC: SUATTDRO 11:02 → MED 11:10
PROVIDERS: ADMIT Physician Assistant; ATTEND Internal Medicine

== ENCOUNTER 2022-05-08 16:46 | Observation (INO) ==
[2022-05-08] MEDS ORDERED: Bismuth Subsalicylate (BTL) 525 MG/30 ML (BULK BTL) PO PRN (16:49)
[2022-05-08] MEDS ORDERED: Magnesium Hydroxide LIQ 30 ML UDC PO PRN (16:49)
[2022-05-08] MEDS ORDERED: Albuterol HFA INHALER 8 gm MDI INH PRN (16:49)
[2022-05-08] MEDS ORDERED: Ondansetron ODT 4 mg TAB 4 MG TAB PO PRN (17:19)
[2022-05-08] MEDS ORDERED: Benzocaine/Menthol LOZ PO PRN (17:58)
[2022-05-08 18:35] LABS: High Sensitivity Troponin 1 Hr 21 pg/mL (<15)
[2022-05-08] MEDS: Calcium Carb (TUMS) 500 mg CHEW TAB PO PRN (19:24)
[2022-05-08] MEDS ORDERED: Iohexol 350 (CONTRAST) 500 ML MDV IV ONE (19:51)
[2022-05-08] MEDS: Mometasone/Formoter 200/5 MDI INH SCH (20:07)
[2022-05-09] MEDS: Calcium Carb (TUMS) 500 mg CHEW TAB PO PRN (01:04)
[2022-05-09] MEDS: Nicotine GUM 2MG FRUIT FLAVOR PO PRN ×2 (05:44→11:02)
[2022-05-09 06:07] LABS: ABS Lymphocytes 0.3 10^3/ul (1.0-4.8); ABS Monocytes 0.5 10^3/ul (0-0.8); ABS Neutrophils 4.9 10^3/ul (1.5-7.7); ABS Nucleated RBC 0.2 10^3/ul; Eosinophil % 0.2 %; Hematocrit 28 % (35-47); Hemoglobin 8.8 g/dL (12.0-16.0); Lymphocyte % 5.9 %; Mean Corpuscular HGB Conc 32 g/dL (31-36); Mean Corpuscular Hemoglobin 35 pg (27-31); Mean Corpuscular Volume 110 fL (80-97); Mean Platelet Volume 8.7 fL (7.4-10.4); Platelet Count 125 10^3/uL (150-450); Red Blood Count 2.51 10^6 /uL (3.70-4.87); Red Cell Distribution Width 21 % (10-15); White Blood Count 5.8 10^3/uL (3.5-10.8)
[2022-05-09 07:16] LABS: Calcium 8.3 mg/dL (8.6-10.3); Creatinine, Serum 0.47 mg/dL (0.51-0.95); Potassium 4.3 mmol/L (3.5-5.0); eGFR CKD-EPI 113.8 (>60)
[2022-05-09] MEDS: Mometasone/Formoter 200/5 MDI INH SCH (07:29)
[2022-05-09] MEDS ORDERED: Nicotine PATCH 21 MG/24 HR PATCH TRANSDERM SCH (08:00)
[2022-05-09] MEDS ORDERED: SPIRIVA Respimat (tiotropium) 2.5 mcg/inh Inhaler INH SCH (09:00)
[2022-05-09] MEDS ORDERED: Fluticasone NASAL SPRAY 50MCG 16 gm SPRAY BTL INTRANASAL SCH (09:00)
[2022-05-09 11:35] VITALS: BP 113/82
[2022-05-09] MEDS ORDERED: Albuterol 2.5mg/3 ml (0.083%) NEB.SOLN INH PRN (11:55)
[2022-05-09 12:25] LABS: Rapid COVID-19 Molecular Undetected (Undetected)
[2022-05-09] MEDS ORDERED: Albuterol/Ipratropium NEB.SOL (2.5/0.5 MG) 3 ML NEB.SOLN INH SCH (15:00)
== END 2022-05-09 13:00 ==
LOC: MED → SUATTDRO 16:46
PROVIDERS: ADMIT Physician Assistant; ATTEND Internal Medicine